=== PATIENT | male | born 1965 | race Caucasian/White ===

== ENCOUNTER 2020-12-04 15:15 | Outpatient (CLI) | payer OTHER, SELFPAY | END 2020-12-04 15:16 | disposition home or self-care (01) | LOC: ANHCOVIDVC 15:15 | PROVIDERS: PCP Family Medicine | DX: Z23 Encounter for immunization (principal) | CPT/HCPCS: 0001A; 91300 ==

== ENCOUNTER 2020-12-25 15:15 | Outpatient (CLI) | payer OTHER, SELFPAY | END 2020-12-25 15:16 | disposition home or self-care (01) | LOC: ANHCOVIDVC 15:15 | PROVIDERS: PCP Family Medicine | DX: Z23 Encounter for immunization (principal) | CPT/HCPCS: 0002A; 91300 ==

== ENCOUNTER → 2021-12-29 13:41 | Outpatient (CLI) | payer OTHER, SELFPAY ==
--- NOTE | ~2021-12-29 | US_ITS ---
EXAMINATION: US scrotum doppler DATE: 12/29/2021 14:27 INDICATION: Other specified disorders of the male genital organs. TECHNIQUE: Grayscale and Doppler ultrasound images of the testes were obtained. COMPARISON: CT abdomen and pelvis 07/25/2018 FINDINGS: The right testis measures 4.6 x 2.5 x 4.3 cm. The left testis measures 4.9 x 2.7 x 3.1 cm. There is normal vascular flow to both testes. There are numerous cysts adjacent to the right testis m easuring up to 5.5 cm. The left epididymis contains cysts measuring up to 1.7 cm. There is no left-si ded hydrocele. There is a left-sided varicocele. There is a left-sided hernia containing fat. IMPRESSION: 1. Chronic cysts adjacent to the right testis, which may be benign cysts of the epididymis or a locu lated right-sided hydrocele. 2. Left inguinal hernia containing fat. 3. Left-sided varicocele. Reviewed, dictated and finalized at location A. IMPRESSION: 1. Chronic cysts adjacent to the right testis, which may be benign cysts of th e epididymis or a loculated right-sided hydrocele. 2. Left inguinal hernia containing fat. 3. Left-sided varicocele.
== END ==
PROVIDERS: PCP Family Medicine; Visit Provider Surgery
DX: N50.89 Other specified disorders of the male genital organs (principal); K40.90 Unilateral inguinal hernia, without obstruction or gangrene, not specified as recurrent; I86.1 Scrotal varices
CPT/HCPCS: 76870; 93976

== ENCOUNTER 2023-09-08 05:56 | Day surgery (SDC) | payer OTHER, SELFPAY ==
[2023-07-15 11:44] VITALS: BMI 26.1
[2023-08-23 14:19] VITALS: BMI 26.5
[2023-09-08 06:39] VITALS: BP 153/99; PULSE 50; RESP 16; TEMP 36.4; O2SAT 97
[2023-09-08] MEDS: LACTATED RINGERS 1,000 ML 150 ML IV CONT (06:55)
--- NOTE | 2023-09-08 07:18 | WPDANESEPPF ---
Anes - Initial Pre Proc Eval Procedure: Operation Date: 09/08/23 08:00 Proposed Procedures p Diagnostic Colonoscopy - John Aragon MD Date/Time: 09/08/23 07:18 Surgeon: John Aragon MD Pre Op Diagnosis: Z80.0 Family history of colon cancer Patient Data Age: 58 Gender: M Height: 1.78 m Weight: 85.65 kg Last Vital Signs Temp 36.4 C L 09/08/23 06:39 Pulse 50 L 09/08/23 06:39 Resp 16 09/08/23 06:39 BP 153/99 H 09/08/23 06:39 Pulse Ox 97 09/08/23 06:39 O2 Del Method Room Air 09/08/23 06:39 Allergies Allergy/AdvReac Type Severity Reaction Status Date / Time No Known Allergies Allergy Verified 09/08/23 06:43 Home Medications Medication Instructions Recorded Confirmed Type aspirin 81 mg tablet,delayed 81 mg PO DAILY 12/16/21 09/08/23 History release cholecalciferol (vitamin D3) 1,250 1,250 mcg PO WEEKLY #12 tabs 12/23/22 09/08/23 Rx mcg (50,000 unit) tablet atorvastatin 40 mg tablet 40 mg PO DAILY #90 tabs 04/13/23 09/08/23 Rx irbesartan 150 1 tablet PO DAILY #90 tabs 08/30/23 09/08/23 Rx mg-hydrochlorothiazide 12.5 mg tablet Patient hx anesthesia problems: none Family hx anesthesia problems: none Results Review: All pre-operative results and documents have been reviewed as part of the pre-operative evaluation. [facility] Past Medical History Medical History Essential (primary) hypertension Family history of colon cancer in father History of colon polyps History of renal calculi Mixed hyperlipidemia Surgical History Surgical History H/O lithotripsy (~2017) H/O vasectomy (~2012) Family History Family History Father Acute myocardial infarction Carcinoma of colon Family history of cardiovascular disease Mother Cerebrovascular accident Family history of malignant neoplasm of urinary bladder Social History Social History Smoking status: Never smoker Alcohol intake: current Substance use: never Substance use type: does not use Lack of Transportation: No Lack of Food: Never True Current Housing: I Have Housing Concerned About Future Housing: No Difficulty Paying Gas/Electric Bills: No Difficulty Paying for Meds: No Currently Unemployed: No Education: Bachelor's Degree Difficulty w/ Childcare or Family Care: No Living arrangements: with family Occupation/Education: retired Spiritual care concerns: No Anes - Eval Final PreProcedure Day of Procedure 09/08/23 07:18 Patient weight: normal Heart: regular rate and rhythm Lungs: clear to auscultation Airway: Mallampati scale class II Neurological: alert and oriented Last oral intake: >/= 8 hours ASA classification: II Emergent: no Anesthetic plan: proceed Anesthesia type and monitoring: general GIVS and standard monitoring Results Review: All pre-operative results and documents have been reviewed as part of the pre-operative evaluation. Informed Consent: The patient's anesthetic plan and its attendant risks and benefits were discussed with the patient/family/POA. Questions were solicited and answers provided to the satisfaction of the patient/family/POA.
--- NOTE | 2023-09-08 07:33 | PM.HPGS ---
History of Present Illness History of Present Illness Consent: Risks, benefits, and alternatives have been discussed and questions answered. Patient agrees to proceed with procedure. Chief complaint: Z80.0 Family history of colon cancer Narrative: Taras Mitchell is a 58 year old male presents for screening colonoscopy. Patient's father had colon cancer. Patient reports that his own weight appetite and bowel movements are normal. He denies abdominal pain. He has had no bleeding. Previous colonoscopy in 2018 was unremarkable. Review of Systems Review of Systems: review of systems is noncontributory. PENDING SALE TO [facility] Past Medical History Medical History (Updated 09/08/23 @ 07:36 by John Aragon MD) Essential (primary) hypertension Family history of colon cancer in father History of colon polyps History of renal calculi Mixed hyperlipidemia Surgical History Surgical History H/O lithotripsy (~2017) H/O vasectomy (~2012) Family History Family History Father Acute myocardial infarction Carcinoma of colon Family history of cardiovascular disease Mother Cerebrovascular accident Family history of malignant neoplasm of urinary bladder Social History Social History Smoking status: Never smoker Alcohol intake: current Substance use: never Substance use type: does not use Lack of Transportation: No Lack of Food: Never True Current Housing: I Have Housing Concerned About Future Housing: No Difficulty Paying Gas/Electric Bills: No Difficulty Paying for Meds: No Currently Unemployed: No Education: Bachelor's Degree Difficulty w/ Childcare or Family Care: No Living arrangements: with family Occupation/Education: retired Spiritual care concerns: No Meds Home Medications and Allergies Home Medications Medication Instructions Recorded Confirmed Type aspirin 81 mg tablet,delayed 81 mg PO DAILY 12/16/21 09/08/23 History release cholecalciferol (vitamin D3) 1,250 1,250 mcg PO WEEKLY #12 tabs 12/23/22 09/08/23 Rx mcg (50,000 unit) tablet atorvastatin 40 mg tablet 40 mg PO DAILY #90 tabs 04/13/23 09/08/23 Rx irbesartan 150 1 tablet PO DAILY #90 tabs 08/30/23 09/08/23 Rx mg-hydrochlorothiazide 12.5 mg tablet Allergies Allergy/AdvReac Type Severity Reaction Status Date / Time No Known Allergies Allergy Verified 09/08/23 06:43 Vital Signs Vital Signs - 24 hr 09/08/23 06:39 Temperature 97.5 F L Pulse Rate 50 L Respiratory Rate 16 Blood Pressure 153/99 H Pulse Oximetry 97 Oxygen Delivery Room Air Exam Narrative: physical exam reveals patient to be alert. Vital signs stable. HEENT exam is unremarkable. Patient is anicteric clear to auscultation and percussion. Heart Is without murmur or extra sounds. Abdomen bowel sounds are present soft nontender with no organomegaly. Digital external rectal exam is normal. Assessment and Plan Assessment and plan (1) Family history of colon cancer in father: Code(s): Z80.0 - Family history of malignant neoplasm of digestive organs Status: Acute Assessment and Plan: His father had colon cancer. For this reason screening colonoscopy advised now and at 5 year intervals.
[2023-09-08 08:38] VITALS: BP 113/70; PULSE 52; RESP 16; O2SAT 94
[2023-09-08 08:48] VITALS: BP 126/69; PULSE 53; RESP 18; O2SAT 100
[2023-09-08 08:58] VITALS: BP 132/82; PULSE 51; RESP 18; O2SAT 99
--- NOTE | 2023-09-08 09:11 | WPDANESPN ---
Anes - Prog Note Post-Op Date/Time: 09/08/23 09:11 Cardiovascular status: normal Respiratory status: normal Airway patency: baseline Mental status: baseline Post-Op hydration status: normal Vital Signs: Last Vital Signs Temp 36.4 C L 09/08/23 06:39 Pulse 51 L 09/08/23 08:58 Resp 18 09/08/23 08:58 BP 132/82 09/08/23 08:58 Pulse Ox 99 09/08/23 08:58 O2 Del Method Room Air 09/08/23 08:58 Pain Score (VAS): 0/10 I/O: Intake & Output 09/07/23 09/08/23 09/08/23 23:59 07:59 15:59 Intake Total 600 Balance 600 Patient Feedback: Patient satisfied with anesthetic care.
== END 2023-09-08 09:14 | disposition home or self-care (01) ==
PROVIDERS: PCP Family Medicine; Visit Provider Internal Medicine Gastroenterology
PROC: 0DJD8ZZ Inspection of Lower Intestinal Tract, Via Natural or Artificial Opening Endoscopic (ICD-10-PCS; CPT 45378; principal; 2023-09-08 08:00)
DX: Z80.0 Family history of malignant neoplasm of digestive organs (principal); K64.8 Other hemorrhoids
CPT/HCPCS: 45378

== ENCOUNTER 2024-09-22 08:45 | Emergency (ER) | payer OTHER, SELFPAY ==
[2024-09-22 09:30] VITALS: BP 117/77; PULSE 57; RESP 16; TEMP 36.8; O2SAT 98
--- NOTE | 2024-09-22 09:59 | ED_ITS ---
HPI - URI/Sore Throat General Chief Complaint: Upper Respiratory Infection Stated Complaint: breathing prob, cough Time Seen by Provider: 09/22/24 09:43 Source: patient and RN notes reviewed Mode of arrival: ambulatory Limitations: no limitations History of Present Illness HPI Narrative: Patient presents today with a one-week history of cough that has worsened over the past 2 days. Denies fever, shortness of breath, congestion, rhinorrhea, sore throat. He took a dose of ibuprofen yesterday. He is also attending the gym to workout. Related Data Home Medications ?Medication ?Instructions ?Recorded ?Confirmed ?Last Taken ?Type aspirin 81 mg tablet,delayed 81 mg PO DAILY 12/16/21 09/22/24 09/05/23 History release Vitamin D3 09/22/24 Unknown History Allergies Allergy/AdvReac Type Severity Reaction Status Date / Time No Known Allergies Allergy Verified 09/22/24 09:25 Review of Systems Review of Systems: CONSTITUTIONAL: Denies body aches, fever, chills, or sweats. EYES: Denies visual changes, redness, or discharge. ENT: Denies rhinorrhea, congestion, sore throat, or otalgia. CARDIOVASCULAR: Denies chest pain, palpitations, or edema. RESPIRATORY: Denies dyspnea.+ cough GASTROINTESTINAL: Denies abdominal pain, nausea, vomiting, or diarrhea. GENITOURINARY: Denies dysuria or hematuria. SKIN: Denies rash, itching, or wounds. MUSCULOSKELETAL: Denies back pain, joint pain, or myalgia. NEUROLOGIC: Denies headache, numbness, tingling, or weakness. PSYCH: Denies depression or anxiety. [facility] Past Medical History Medical History History of SCC (squamous cell carcinoma) of skin (~11/2023) Vitamin D deficiency History of renal calculi History of colon polyps Family history of colon cancer in father Essential (primary) hypertension Mixed hyperlipidemia Surgical History Surgical History History of squamous cell carcinoma excision (~11/2023) scalp, behind right ear H/O vasectomy (~2012) H/O lithotripsy (~2018) Family History Family History Father Acute myocardial infarction Carcinoma of colon Family history of cardiovascular disease Mother Cerebrovascular accident Family history of malignant neoplasm of urinary bladder Social History Social History Smoking status: Never smoker Alcohol intake: current Substance use: never Substance use type: does not use Do You Feel Safe in your Home?: Yes Lack of Transportation: No Lack of Food: Never True Current Housing: I Have Housing Concerned About Future Housing: No Difficulty Paying Gas/Electric Bills: No Difficulty Paying for Meds: No Currently Unemployed: No Education: Bachelor's Degree Difficulty w/ Childcare or Family Care: No Living arrangements: with family Occupation/Education: retired Gender identity (if verbalized by the patient): Male Spiritual care concerns: No Agree to blood products: Yes Comments At time of signature, I have reviewed and agree with nursing past medical, surgical, social and family history unless otherwise noted. Please see nursing chart for further information. There is no relevant family history pertinent to the presenting complaint Exam Narrative: GENERAL: Well-appearing, well-nourished, and in no acute distress. HEAD: Normocephalic, atraumatic. EYES: EOMI. No redness or drainage. Conjunctivae normal. ENT: Mucous membranes pink and moist. Nares clear. No rhinorrhea. TMs normal bilaterally. Throat normal. Uvula midline. NECK: Normal AROM. Supple. No lymphadenopathy. CHEST: No respiratory distress. Slight expiratory wheezing at the end of coughing when exhaling. HEART: Regular rate and rhythm. No murmur appreciated. EXTREMITIES: Normal range of motion. No edema. SKIN: Warm, dry, no rash. Capillary refill normal. Normal skin turgor. NEURO: No focal deficits. Alert and oriented x3. Gait steady. PSYCH: Normal affect. No signs of depression or anxiety. Course Course Level of Care: Express Care Visit Vital Signs Vital signs: Vital Signs Temperature 98.2 F 09/22/24 09:30 Pulse Rate 57 L 09/22/24 09:30 Respiratory Rate 16 09/22/24 09:30 Blood Pressure 117/77 09/22/24 09:30 Pulse Oximetry 98 09/22/24 09:30 Temperature 98.2 F 09/22/24 09:30 Pulse Rate 57 L 09/22/24 09:30 Respiratory Rate 16 09/22/24 09:30 Blood Pressure 117/77 09/22/24 09:30 Pulse Oximetry 98 09/22/24 09:30 Reviewed MDM - URI/Sore Throat MDM Narrative Medical decision making narrative: Patient will be treated with prednisone for bronchitis. At this time he is not short of breath, does not have a fever, or any other signs of bacterial infection. Declines prescription for cough medicine. Anticipatory guidance given. ED precautions given. Differential Diagnosis Differential diagnosis: Likely upper respiratory infection, viral infection, bronchitis and other (Pneumonia) Critical Care Time Critical Care Time Critical Care Time: No Discharge Plan Discharge Clinical Impression: Bronchitis Patient Disposition: Home, Self-Care Condition: Stable Instructions: Acute Bronchitis (ED) Additional Instructions: Please take the prednisone as directed. Take Mucinex to help break up any chest congestion. Rest and drink plenty of fluids. Follow-up with your PCP in 3-4 days if symptoms are not improving. Go to the ER immediately if you become short of breath, developed any chest pain, or develop any new fever greater than 100.3. Patient Language: Lithuanian Prescriptions: New prednisone 50 mg tablet 50 mg PO DAILY 5 Days Qty: 5 0RF No Action Vitamin D3 aspirin 81 mg tablet,delayed release (DR/EC) 81 mg PO DAILY atorvastatin 40 mg tablet 40 mg PO QHS Qty: 90 3RF irbesartan-hydrochlorothiazide 150-12.5 mg tablet 1 tablet PO DAILY Qty: 90 3RF Follow-up/Referrals: Harriett Du MD [Primary Care Provider] - Time of Disposition: 10:05
== END 2024-09-22 10:07 | disposition home or self-care (01) ==
PROVIDERS: Emergency Provider Nurse Practitioner; PCP Family Medicine
DX: J40 Bronchitis, not specified as acute or chronic (principal); I10 Essential (primary) hypertension; E78.2 Mixed hyperlipidemia; Z98.52 Vasectomy status; Z85.828 Personal history of other malignant neoplasm of skin; Z79.82 Long term (current) use of aspirin
CPT/HCPCS: 99213; G0463